=== PATIENT | female | born 1985 | race Caucasian/White ===

== ENCOUNTER → 2016-03-06 | Outpatient (CLI) | payer OTHER ==
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
== END ==
LOC: FIMAGING 21:08
PROVIDERS: ATTEND Family Medicine
DX: M41.84 Other forms of scoliosis, thoracic region (principal)

== ENCOUNTER → 2016-03-13 | Outpatient (CLI) | payer OTHER ==
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
== END ==
LOC: FIMAGING 16:12
PROVIDERS: ATTEND Neuromusculoskeletal Medicine & OMM
DX: M54.9 Dorsalgia, unspecified (principal)

== ENCOUNTER → 2016-03-19 | Outpatient (CLI) | payer OTHER ==
--- NOTE | 2016-03-19 11:44 | CT ---
CT Abdomen and Pelvis (Without Contrast) at 1043 hours History: R10.9, right-sided abdominal pain, suspect ureterolithiasis. Technique: Spiral images were acquired from the upper abdomen through the pelvis without intravenous or oral contrast, which limits the study. Dose reduction techniques were utilized. Findings: Abdomen: Bilateral kidneys demonstrate no nephrolithiasis or hydronephrosis. Lung bases are clear. No hepatosplenomegaly or ascites. No peripancreatic fluid. No aortic aneurysm or significant adenopathy . No bowel obstruction or dilation. Moderate stool throughout the colon suggesting constipation. Pelvis: No evidence of distal ureteral calculi, hydroureter or bladder calculi. Appendix appears nor mal without inflammatory changes. No definite adnexal masses or significant free fluid in the pelvis. No destructive osseous lesions. Impression: 1. No nephrolithiasis or hydronephrosis. 2. Constipation. Attention: This CT examination is specifically designed to evaluate patients who are clinically susp ected of having acute obstructive uropathy. This examination does not use radiographic contrast, and as such, provides only a limited evaluation of the abdomen, pelvis and retroperitoneum. If there is further clinical suspicion for pathological conditions other than obstructive uropathy, a complete C T evaluation of the abdomen and pelvis utilizing intravenous, oral, and rectal contrast should be con sidered.
== END ==
LOC: FIMAGING 10:20
PROVIDERS: ATTEND Family Medicine
DX: R10.9 Unspecified abdominal pain (principal); K59.00 Constipation, unspecified